=== PATIENT | male | born 1950 ===

== ENCOUNTER → 2025-01-21 12:57 | Outpatient (REF) | payer OTHER, SELFPAY | LOC: MRI 3T 12:57 | PROVIDERS: ATTENDING PHYSICIAN Surgery; FAMILY PHYSICIAN Student in an Organized Health Care Education/Training Program | DX: R97.20 Elevated prostate specific antigen [PSA] (principal) | CPT/HCPCS: 72197; A9585 ==

== ENCOUNTER 2025-04-20 06:22 | Day surgery (SDC) | payer OTHER, SELFPAY ==
[2025-04-06 11:46] LABS: Hematocrit 39.4 % (39.0-52.0); Hemoglobin 13.2 g/dL (13.0-18.0); Mean Corp Hgb Conc. 33.5 g/dL (33.0-37.0); Mean Corpuscular Hgb 32.3 pg (27.0-31.0); Mean Corpuscular Volume 96.3 fL (80.0-94.0); Mean Platelet Volume 11.4 fL (7.4-10.4); Platelet Count 161 10^3/uL (130-400); Red Blood Cell Count 4.09 10^6/uL (4.70-6.10); Red Cell Dist. Width 13.7 % (11.5-14.5); White Blood Cell Count 5.7 10^3/uL (4.8-10.8)
[2025-04-06 12:02] LABS: Blood Urea Nitrogen 21 mg/dl (9-20); Calcium 9.5 mg/dl (8.4-10.2); Carbon Dioxide 25 mmol/L (22-30); Chloride 109 mmol/L (98-107); Glucose 148 mg/dl (70-99); Potassium 5.1 mmol/L (3.5-5.1); Sodium 142 mmol/L (135-145); eGFR > 60.00
[2025-04-06 13:41] VITALS: BMI 37.7
--- NOTE | 2025-04-06 15:16 | PTCARENOTE ---
Abnormal ECG done 04/06/25, reviewed by Dr Momin, no further intervention requested.
[2025-04-20] VITALS (10 sets, daily range): BP systolic 106–166; BP diastolic 61–94; BMI 37.7
[2025-04-20] MEDS: CYSVIEW KIT 100 MG INTRAVES (07:56)
[2025-04-20 08:04] LABS: Glucose - Point of Care 160 mg/dl (70-99)
[2025-04-20] MEDS: NORMOSOL-R/PLASMALYTE-A 1000 IV (08:09)
[2025-04-20] MEDS: SYRINGE NON-PUMP 50 MG IRRIG ×2 (09:42→09:43)
[2025-04-20] MEDS: SYRINGE NON-PUMP 50 ML IRRIG ×2 (09:42→09:43)
[2025-04-20] MEDS: VALIUM INJECTION 2 MG IV (09:55)
[2025-04-20] MEDS: DETROL LA 4 MG PO (09:57)
== END 2025-04-20 11:50 | disposition home or self-care (01) ==
LOC: SDS 06:22
PROVIDERS: ATTENDING PHYSICIAN Surgery; FAMILY PHYSICIAN Student in an Organized Health Care Education/Training Program
DX: C67.4 Malignant neoplasm of posterior wall of bladder (principal); N21.0 Calculus in bladder; N40.1 Benign prostatic hyperplasia with lower urinary tract symptoms; N52.9 Male erectile dysfunction, unspecified
CPT/HCPCS: 52318; 52234; 51720; C9738; 88307; 36415; 80048; 82962; 85027; 93005; A9589; J9201